=== PATIENT | female | born 1980 ===

== ENCOUNTER 2017-09-23 05:48 | Inpatient (IN) | payer OTHER ==
[2017-09-23] VITALS (10 sets, daily range): BP systolic 90–115; BP diastolic 47–76
[~2017-09-23] VITALS: Ht 157.5 cm; Wt 68.0 kg
[~2017-09-23 05:48] MED LIST: NKM
[2017-09-23] MEDS ORDERED: Zemuron 50mg/5ml Inj IV ONE (06:14)
[2017-09-23] MEDS ORDERED: Lidocaine 1% Plain 30 ml INJ ONE ×2 (06:19→09:43)
[2017-09-23] MEDS ORDERED: LR 1000ml 1,000 ML IVLG SCH (06:29)
[2017-09-23] MEDS ORDERED: Atropine Inj 1mg/10ml Syr IV PRN (06:30)
[2017-09-23] MEDS ORDERED: LORazepam Inj 2mg/ml 1ml IV PRN (06:30)
[2017-09-23] MEDS ORDERED: oxyCODONE HCL/Acetaminophen 5/325mg ORAL PRN (06:30)
[2017-09-23] MEDS ORDERED: HYDROcodone/Acetamin 7.5/325 tab ORAL PRN (06:30)
[2017-09-23] MEDS ORDERED: Ketorolac 30mg Inj IV PRN ×2 (06:30)
[2017-09-23] MEDS ORDERED: Metoclopramide 10mg/2ml Inj IVP PRN (06:30)
[2017-09-23] MEDS ORDERED: Hydromorphone 0.5mg/0.5ml inj IVP PRN (06:30)
[2017-09-23] MEDS ORDERED: DiphenhydrAMINE 50mg/ml Inj IVP PRN (06:30)
[2017-09-23] MEDS ORDERED: Norco 5mg/325mg tab ORAL PRN ×2 (06:30→07:30)
[2017-09-23] MEDS ORDERED: Labetalol 5mg/ml 20ml vial IV PRN (06:30)
[2017-09-23] MEDS ORDERED: Midazolam 2mg/2ml Inj IVP PRN (06:30)
[2017-09-23] MEDS ORDERED: fentaNYL 100 mcg/2 mL IV PRN (06:30)
[2017-09-23] MEDS ORDERED: Acetaminophen (Non formulary) 100 ML IV ONE (06:30)
--- NOTE | 2017-09-23 06:30 | Anethesia Preoperative Eval ---
Anesthesia Pre-op PMH/ROS General Date of Evaluation: Sep 23, 2017 Time of Evaluation: 07:16 Anesthesiologist: Francisca ASA Score: ASA 1 Mallampati Score Class I : Soft palate, uvula, fauces, pillars visible Class II: Soft palate, uvula, fauces visible Class III: Soft palate, base of uvula visible Class IV: Only hard plate visible Mallampati Classification: Class I Surgeon: Mimi Diagnosis: Back Pain Surgical Procedure: TLIF L4-5 Anesthesia History: none Family History: no anesthesia problems Allergies: Coded Allergies: No Known Allergies (Unverified , 09/20/17) Medications: see eMAR Past Medical History Neurologic/Psychiatric: Reports: depression/anxiety Hematology/Immune: Reports: anemia PSxH Narrative: Cholecystectomy, Appendectomy Anesthesia Pre-op Phys. Exam Physician Exam Vital Signs Date Time Temp Pulse Resp B/P (MAP) Pulse Ox O2 Delivery O2 Flow Rate FiO2 09/23/17 06:44 98.2 92 20 114/76 100 Room Air 98.2 Constitutional: NAD Neurologic: CN 2-12 intact Cardiovascular: RRR Respiratory: CTA Gastrointestinal: S/NT/ND Airway Exam Mallampati Score: Class I MO: full ROM: full Teeth: intact - Braces Anesthesia Pre-op A/P Risk Assessment & Plan Assessment: ASA 1 Plan: GA, BIS, GlideScope Status Change Before Surgery: No Pre-Antibiotics Dru Grams Ancef IV Given Within 1 Hr of Incision: Yes Time Given: 07:21 Greg Espinosa MD Sep 23, 2017 06:30
[2017-09-23] MEDS ORDERED: Sodium Chloride 10ml vial INJ ONE (06:45)
[2017-09-23] MEDS ORDERED: Lidocaine 1% MPF 10mg/ml 5ml ONE (06:45)
[2017-09-23] MEDS ORDERED: Dexamethasone 4mg/ml vial ONE (06:45)
[2017-09-23] MEDS ORDERED: fentaNYL 100 mcg/2 mL IV ONE ×2 (06:53→08:25)
[2017-09-23] MEDS ORDERED: NS Irrig 1000ml ONE (07:00)
[2017-09-23] MEDS ORDERED: Sterile Water Irrig 1000ml IRRIG ONE (07:00)
[2017-09-23] MEDS ORDERED: LR 1000ml ONE (07:00)
[2017-09-23] MEDS ORDERED: ceFAZolin sod 2 GM in D5W 110 ML IVPB ONE (07:00)
--- NOTE | 2017-09-23 07:19 | Pre-Procedure Note/Attestation ---
Pre-Procedure Note/Attestation Complete Prior to Procedure Procedure Narrative: transforaminal lumbar interbody fusion and decompression and instrumentation at L4-5 with bone marrow aspiration Indications for Procedure Pre-Operative Diagnosis: lumbar spondylosis and radiculopathy L4-5 Attestation I attest that I discussed the nature of the procedure; its benefits; risks and complications; and alternatives (and the risks and benefits of such alternatives ), prior to the procedure, with the patient (or the patient's legal resources representative). I attest that, if there was a reasonable possibility of needing a blood transfusion, the patient (or the patient's legal resources representative) was given the [place] Department [employer] standardized written summary, pursuant to the [place] Blood Safety Act ([place] Health and Safety Code # 1645, as amended). I attest that I re-evaluated the patient just prior to the surgery and that there has been no change in the patient's H&P, except as documented below: Lisandro Le MD Sep 23, 2017 07:19
[2017-09-23] MEDS ORDERED: Vancomycin 1gm inj IVPB ONE (07:23)
[2017-09-23] MEDS ORDERED: Thrombin 5000 units TOPIC ONE (07:23)
[2017-09-23] MEDS ORDERED: Heparin 5000 units/ml inj ONE (07:23)
[2017-09-23] MEDS ORDERED: EPINEPHrine 1mg/1ml Amp ONE (07:24)
[2017-09-23] MEDS ORDERED: Bacitracin 50000 Units Vial ONE (07:24)
[2017-09-23] MEDS ORDERED: Bupivacaine 0.5% Inj 30 ml vial INJ ONE (07:24)
[2017-09-23] MEDS ORDERED: Naloxone 0.4mg/ml Inj IVP PRN (07:30)
[2017-09-23] MEDS ORDERED: Morphine Sulfate 4mg/ml Inj SUBQ PRN (07:30)
[2017-09-23] MEDS ORDERED: Propofol 1,000mg/ 100ml btl IV ONE (07:30)
[2017-09-23] MEDS ORDERED: Labetalol 5mg/ml 20ml vial IV ONE (09:00)
--- NOTE | 2017-09-23 09:30 | Immediate Post-Op Evaluation ---
Immediate Post-Op Evalulation Immediate Post-Op Evalulation Procedure: TLIF L4-5 Date of Evaluation: Sep 23, 2017 Time of Evaluation: 11:37 IV Fluids: 1000 LR Blood Products: 0 Estimated Blood Loss: 100 Urinary Output: 100 Blood Pressure Systolic: 93 Blood Pressure Diastolic: 63 Pulse Rate: 91 Respiratory Rate: 16 O2 Sat by Pulse Oximetry: 98 Temperature (Fahrenheit): 99.8 Pain Score (1-10): 3 Nausea: No Vomiting: No Complications 0 Patient Status: awake, reacts, patent, extubated, none Hydration Status: adequate Dru Grams Ancef IV Given Within 1 Hr of Incision: Yes Time Given: 07:21 Greg Espinosa MD Sep 23, 2017 09:30
[2017-09-23] MEDS ORDERED: Neostigmine 1mg/ml 10ml Inj ONE (10:02)
[2017-09-23] MEDS ORDERED: Glycopyrrolate 0.2mg/ml 1ml Vial ONE (10:03)
--- NOTE | 2017-09-23 11:08 | Brief Operative Note ---
Immediate Post Operative Note Operative Note Pre-op Diagnosis: lumbar spondylosis and radiculopathy L4-5 Procedure: TLIF L4-5 WITH INSTRUMENTATION AND DECOMPRESSION AND IC BONE MARROW ASPIRATION Post-op Diagnosis: same as pre-op Findings: consistent w/pre-op dx studies Surgeon: LACI Packager: ALLYSON Anesthesiologist: SARAI Anesthesia: general Specimen: yes Complications: none Condition: stable Fluids: 1000CC CRYSTALLOID Estimated Blood Loss: volume - 100CC Drains: hemovac Implant(s) used?: Yes Lisandro Le MD Sep 23, 2017 11:08
[2017-09-23] MEDS: Morphine Sulfate 4mg/ml Inj SUBQ PRN ×2 (14:11→20:33)
[2017-09-23] MEDS: D5 1/2NS 1,000 ML IV SCH (14:14)
[2017-09-23] MEDS ORDERED: ceFAZolin sod 1 GM in D5W 55 ML IV SCH (16:00)
[2017-09-23] MEDS: ceFAZolin sod 1 GM in D5W 110 ML IV SCH (16:10)
--- NOTE | 2017-09-23 17:16 | Diagnostic Imaging Report ---
Indication: Back pain Comparison: None Findings: 3 intraoperative views of the lumbar spine were obtained. Imaging during lower lumbar fusion with posterior pedicle screws and fusion rods demonstrated on multiple views. IMPRESSION: intraoperative imaging
[2017-09-23] MEDS: Docusate 100mg cap ORAL SCH (17:37)
--- NOTE | 2017-09-23 22:32 | Operative Note - Dictated ---
DATE OF OPERATION: 09/23/2017 PREOPERATIVE DIAGNOSIS: L4-L5 disk protrusion with annular tear spondylosis and radiculopathy with concordant pain at L4-L5. POSTOPERATIVE DIAGNOSIS: L4-L5 disk protrusion with annular tear spondylosis and radiculopathy with concordant pain at L4-L5. PROCEDURE PERFORMED: 1. Posterolateral arthrodesis at L4-L5 2. Pedicle screw instrumentation at L4-L5. 3. Posterior interbody fusion at L4-L5 with PEEK interbody device. 4. Insertion of PEEK interbody device at L4-L5. 5. Bone marrow aspiration, left posterior iliac crest. 6. Placement of local autograft and allograft for fusion at L4-L5. 7. Intraoperative use of microscope. 8. Intraoperative use of fluoroscopy. SURGEON: Lisandro Le M.D. PLANNING ASSOCIATE: Pepe Anderson M.D. ANESTHESIA: General endotracheal anesthesia. ANESTHESIOLOGIST: Greg Espinosa M.D. INTRAOPERATIVE FINDINGS: Spondylosis, disk height collapse, stenosis, disk protrusion at L4-L5. EBL: 100 mL. FLUIDS: 1000 mL crystalloid. INDICATION: The patient has failed nonoperative treatment and recommendations for above treatment was made. Risks, alternatives, and benefits were discussed with the patient at length. Risks include, but are not limited to, anesthesia complications including , medical complications including liver, kidney, and cardiopulmonary deficits, bleeding infection, neurovascular injury, pars fracture, instability, need for future surgery, pseudarthrosis, hardware complications as well as other complications. The patient understood and wished to proceed. Written and verbal consent was given. DESCRIPTION OF OPERATION: The patient was brought into the operating room, supine on a stretcher. Appropriate IV lines were placed by the anesthesiologist. A 2 g of Ancef was administered. A surgical time-out was called. Surgical site and procedure was reviewed. Anesthesia was induced and the patient was successfully intubated. Sequential compression devices were placed onto the bilateral lower extremities. A Dial was placed under sterile conditions. The patient was turned prone onto the Bucky frame table. All bony prominences were well padded including the abdomen. The patient was prepped and draped in the usual sterile fashion with alcohol, ChloraPrep, and Ioban draping. Me and my administrative library assistant were prepped and gowned as well. The intraoperatively sterilely draped microscope was brought into the field for microdissection of the neural elements. An incision was carried out over the midline over L4-L5. Subperiosteal dissection was done at L4-L5 including the transverse process and facet joint capsule at L3-L4 was well preserved. Now, attention was first diverted to the right side at L4-L5. With a high-speed drill, straight and curved curette, #2 through #5 Kerrison punches and inter lumbar laminotomy, medial facetectomy at L4-L5 was done. The ligamentum flavum was removed and a large was placed for protection of neural elements during the facetectomy portion of the procedure. At this point with a high-speed drill, the superior and inferior articular facets at L4-L5 on the right side was removed for the pedicle to pedicle decompression at L4-L5 on the right side. Now all the neural elements were carefully microdissected and medially retracted for the diskectomy portion. The floor of the canal was checked. There was disk protrusion at L4-L5 causing impingement of the neural elements and with a #11-blade a box incision was made into the posterior anulus and the radical diskectomy entailed with box curettes, pituitary rongeurs, as well as Gabe curette. The endplate cartilage was removed. The endplate bone was well preserved. Shaver instruments were used as well for the diskectomy. Once this was accomplished, a trial from the [employer] RTI system was used and trial 22 mm long, 8 mm in height, and 6 mm lordosis was found to be well fitting into the interbody space. The interspinous outgoing inspector was also used to help with placement of the trial and then the PEEK graft. Once this was done, PEEK interbody device measuring 22 mm long, 8 mm height, and 6 degrees lordosis was chosen. It was packed with bone morphogenic protein, local autograft as well as Geronimo putty, as well as bone morphogenic protein. In the anterior interbody space, bone morphogenic protein, Geronimo allograft, and local autograft was also placed. Before this was done, a bone marrow aspiration of the left posterior iliac crest was done and 30 mL of bone marrow aspirate was taken to the spun down and later to be implanted into the anterior interbody space. The bone marrow and aspirate which was spun down now soaked into the local autograft as well the local allograft and placed into the anterior interbody space at L4-L5 in conjunction with bone morphogenic protein, allograft and autograft. Once this was completed, PEEK interbody device was placed into the L4-L5 interbody space with excellent apposition against the endplates and good recreation of disk height and it fit well into the anterior interbody space. This was confirmed with biplanar fluoroscopy. Once this was accomplished, attention was diverted to placement of the pedicle screws. A high-speed drill was used to the level of the mamillary processes and the center of the pedicles were found with pedicle probes and a ball-tip probe was used and there was no cortical breaches. Appropriately-sized taps was used and the following pedicle screws were successfully placed from the [employer] System. At L4 bilaterally 5.5 x 45 mm screws were placed at L5 bilaterally 6.5 x 25 mm was placed on and at this point each screw had excellent purchase. Stimulus evoked EMG was done for each pedicle screw and the screws were deemed to be stage. Decortication of the transverse process and the pars was done and attention now was diverted to placement of the rods 40 mm and 45 mm michelle was placed, setscrews were placed. Bone graft now was placed in the posterior lateral recess for posterolateral arthrodesis. Geronimo allograft as well as local autograft with bone marrow aspirate which was spun down was placed into the posterolateral recess. Once this was accomplished, the bone graft was protected. The wound was copiously irrigated with triple antibiotic solution. Hemostasis was achieved and final fluoroscopy AP and lateral was done revealed all instrumentation to be in excellent position. Now, attention was diverted to closure. A medium-sized Hemovac drain was placed subfascially. Dorsal lumbar fascia was closed with #1 Vicryl sutures in a watertight interrupted fashion. The subdermal and subcuticular layers were closed with 2-0 Vicryl sutures. The skin was closed with Dermabond. Sterile dressing and tape was placed. All sponge, needle, instrument counts were correct. Sterile dressing and tape was placed. The patient was turned supine, was extubated in stable condition, and was found to be neurovascularly intact. She was admitted to the hospital for monitoring. Lisandro Le M.D. DR: Ayad JOB#: [id number] CC:
[2017-09-24] VITALS: BP 113/71
[2017-09-24] MEDS: ceFAZolin sod 1 GM in D5W 110 ML IV SCH ×2 (00:13→08:00)
[2017-09-24] MEDS: D5 1/2NS 1,000 ML IV SCH ×3 (00:14→20:46)
[2017-09-24] MEDS: HYDROcodone/Acetamin 7.5/325 tab ORAL PRN ×2 (00:20→13:16)
[2017-09-24 04:00] VITALS: BP 103/61
[2017-09-24] MEDS: Morphine Sulfate 4mg/ml Inj SUBQ PRN ×3 (07:23→20:03)
[2017-09-24 08:00] VITALS: BP 116/78
[2017-09-24] MEDS: Docusate 100mg cap ORAL SCH ×2 (08:07→17:50)
[2017-09-24 08:16] LABS: HEMATOCRIT 24.8 % (37.0-47.0); HEMOGLOBIN 7.9 G/DL (12.0-16.0); MEAN CORPUSCULAR VOLUME 73 FL (80-99); PLATELET COUNT 355 K/UL (150-450); RED BLOOD COUNT 3.38 M/UL (4.20-5.40); RED CELL DISTRIBUTION WIDTH 14.2 % (11.6-14.8); WHITE BLOOD COUNT 14.6 K/UL (4.8-10.8)
--- NOTE | 2017-09-24 11:04 | 48 Hour Post Anesthesia Eval ---
Post Anesthesia Evaluation Procedure: TLIF L4-5 Date of Evaluation: Sep 24, 2017 Time of Evaluation: 08:00 Blood Pressure Systolic: 116 0: 78 Pulse Rate: 93 Respiratory Rate: 16 Temperature (Fahrenheit): 97.6 O2 Sat by Pulse Oximetry: 99 Airway: patent Nausea: No Vomiting: No Pain Intensity: 0 Hydration Status: adequate Mental Status/LOC: patient returned to baseline Post-Anesthesia Complications: none Follow-up care needed: N/A Amy Pritchett M.D. Sep 24, 2017 11:04
--- NOTE | 2017-09-24 11:12 | History and Physical ---
History of Present Illness General Date patient seen: Sep 24, 2017 Present Illness HPI 37 year old female with hx of depression, anemia presented with lumbar spondylosis and radiculopathy L4-5 and underwent TLIF L4-5 yesterday. Allergies: Coded Allergies: No Known Allergies (Unverified , 09/20/17) Medication History Scheduled No Known Medications* (NKM - No Known Medications*), 0 ., (Reported) Patient History Healthcare decision maker LAURA LYNN-SON Resuscitation status Full Code Advanced Directive on File Yes Review of Systems All Other Systems: negative except mentioned in HPI Physical Exam General Appearance: WD/WN, no apparent distress Lines, tubes and drains: peripheral HEENT: normocephalic, atraumatic Neck: non-tender, normal alignment Respiratory/Chest: chest wall non-tender, lungs clear Breasts: no masses Cardiovascular/Chest: normal peripheral pulses Abdomen: normal bowel sounds, non tender Genitourinary/Rectal: normal genital exam, normal rectal exam Extremities: normal range of motion, non-tender Skin Exam: normal pigmentation Last 24 Hour Vital Signs Date Time Temp Pulse Resp B/P (MAP) Pulse Ox O2 Delivery O2 Flow Rate FiO2 09/24/17 11:04 207.7 93 16 99 09/24/17 08:00 97.6 93 16 116/78 99 97.6 09/24/17 04:00 97.7 86 18 103/61 96 Nasal Cannula 3.0 97.7 09/24/17 00:00 97.5 94 18 113/71 95 Nasal Cannula 3.0 97.5 09/23/17 20:00 97.9 98 18 115/71 97 Nasal Cannula 3.0 97.9 09/23/17 12:59 98.3 73 19 110/60 100 Nasal Cannula 2.0 98.3 09/23/17 12:45 99.0 09/23/17 12:30 99.0 84 19 107/58 100 Nasal Cannula 2.0 99.0 09/23/17 12:24 37.2 09/23/17 12:24 37.2 09/23/17 12:15 83 18 105/55 100 Nasal Cannula 2.0 09/23/17 12:00 82 17 102/47 100 Nasal Cannula 2.0 09/23/17 11:59 99.8 09/23/17 11:54 99.8 09/23/17 11:52 99.8 09/23/17 11:46 84 18 90/52 100 Simple Mask 6.0 09/23/17 11:36 82 17 101/59 100 Simple Mask 6.0 09/23/17 11:31 99.8 100 16 92/51 98 Simple Mask 6.0 99.8 09/23/17 11:26 99.8 100 16 98/63 98 Simple Mask 6.0 99.8 09/23/17 11:26 211.6 91 16 98 Intake and Output 09/23/17 09/24/17 19:00 07:00 Intake Total 1970 ml 1160 ml Output Total 200 ml 1790 ml Balance 1770 ml -630 ml Intake Oral 560 ml IV Total 1410 ml 1160 ml Output Urine Total 100 ml 1600 ml Drainage Total 190 ml Estimated Blood Loss 100 ml Laboratory Tests Test 09/24/17 07:00 White Blood Count 14.6 K/UL (4.8-10.8) H Red Blood Count 3.38 M/UL (4.20-5.40) L Hemoglobin 7.9 G/DL (12.0-16.0) L Hematocrit 24.8 % (37.0-47.0) L Mean Corpuscular Volume 73 FL (80-99) L Mean Corpuscular Hemoglobin 23.4 PG (27.0-31.0) L Mean Corpuscular Hemoglobin Concent 31.9 G/DL (32.0-36.0) L Red Cell Distribution Width 14.2 % (11.6-14.8) Platelet Count 355 K/UL (150-450) Mean Platelet Volume 6.4 FL (6.5-10.1) L Neutrophils (%) (Auto) % (45.0-75.0) Lymphocytes (%) (Auto) % (20.0-45.0) Monocytes (%) (Auto) % (1.0-10.0) Eosinophils (%) (Auto) % (0.0-3.0) Basophils (%) (Auto) % (0.0-2.0) Differential Total Cells Counted 100 Neutrophils % (Manual) 77 % (45-75) H Lymphocytes % (Manual) 13 % (20-45) L Monocytes % (Manual) 10 % (1-10) Eosinophils % (Manual) 0 % (0-3) Basophils % (Manual) 0 % (0-2) Band Neutrophils 0 % (0-8) Platelet Estimate Adequate Platelet Morphology Normal Hypochromasia 1+ Anisocytosis 1+ Microcytosis 1+ Height (Feet): 5 Height (Inches): 2.00 Weight (Pounds): 150 Medications Current Medications Medications (Trade) Dose Ordered Sig/Camryn Route PRN Reason Start Time Stop Time Status Last Admin Dose Admin Acetaminophen/ Hydrocodone Bitart (Shelby 5/325) 1 tab Q3H PRN ORAL pain score 1-3 09/23/17 07:30 09/30/17 07:29 Acetaminophen/ Hydrocodone Bitart (Shelby 7.5/325) 1 tab Q3H PRN ORAL pain score 4-6 09/23/17 07:30 09/30/17 07:29 09/24/17 00:20 Acetaminophen/ Hydrocodone Bitart (Shelby 7.5/325) 2 tab Q3H PRN ORAL pain scale 7-10 09/23/17 07:30 09/30/17 07:29 Al Hydroxide/Mg Hydroxide (Mylanta) 15 ml Q1H PRN ORAL gi upset 09/23/17 06:30 Dextrose/Sodium Chloride 1,000 ml @ 100 mls/hr Q10H IV 09/23/17 14:00 10/23/17 13:59 09/24/17 10:11 Docusate Sodium (Colace) 100 mg TWICE A DAY ORAL 09/23/17 18:00 10/23/17 17:59 09/24/17 08:07 Morphine Sulfate (Morphine Sulfate) 4 mg Q3H PRN SUBQ Severe Pain (Pain Scale 7-10) 09/23/17 07:30 09/30/17 07:29 09/24/17 07:23 Morphine Sulfate (Morphine Sulfate) 4 mg Q4H PRN SUBQ Moderate Pain (Pain Scale 4-6) 09/23/17 07:30 09/30/17 07:29 Naloxone HCl (Narcan) 0.1 mg PRN PRN IVP RR<12/min, pt unarousable 09/23/17 07:30 10/23/17 07:29 Ondansetron HCl (Zofran) 4 mg Q6H PRN IVP Nausea & Vomiting 09/23/17 20:45 10/23/17 20:44 6/2/18 07:22 Assessment/Plan Problem List: (1) Lumbar radiculopathy ICD Codes: M54.16 - Radiculopathy, lumbar region SNOMED: 778997121 (2) Depression ICD Codes: F32.9 - Major depressive disorder, single episode, unspecified SNOMED: 71519117 (3) Severe anemia ICD Codes: D64.9 - Anemia, unspecified SNOMED: 680689803 Assessment/Plan post op care symptomatic treatment anemia w/u dvt prophylaxis pain management. Moris Mccarthy MD Sep 24, 2017 11:12
[2017-09-24 12:00] VITALS: BP 110/75
[2017-09-24 15:21] LABS: BASOPHILS % (AUTO) 0.6 % (0.0-2.0); EOSINOPHILS % (AUTO) 0.1 % (0.0-3.0); HEMATOCRIT 25.5 % (37.0-47.0); HEMOGLOBIN 8.4 G/DL (12.0-16.0); LYMPHOCYTES % (AUTO) 14.3 % (20.0-45.0); MEAN CORPUSCULAR VOLUME 73 FL (80-99); MONOCYTES % (AUTO) 6.2 % (1.0-10.0); NEUTROPHILS % (AUTO) 78.9 % (45.0-75.0); PLATELET COUNT 342 K/UL (150-450); RED CELL DISTRIBUTION WIDTH 14.4 % (11.6-14.8)
[2017-09-24 16:00] VITALS: BP 115/74
--- NOTE | 2017-09-24 17:26 | General Progress Note ---
Progress Note Progress Note NO PAIN WITH AMBULATION NO LEG PAIN TYPE OF LB PAIN DIFFERENT PREOP PAIN CHARACTER NO LONGER AVSS A AND O TIMES 3 DRESSING CDI HV 50 SHIFT 5/5 MOTOR IN THE LE CALVES SOFT ADN NT HG UP TO 8.4 A: STABLE P: HD STABLE OOB AND PT LABS TOMORROW NO BLOOD TX NEED AT THIS POINT WILL CONTINUE TO MONITOR Lisandro Patel MD Sep 24, 2017 17:26
[2017-09-24 20:00] VITALS: BP 105/70
[2017-09-25] VITALS: BP 121/81
[2017-09-25] MEDS: Morphine Sulfate 4mg/ml Inj SUBQ PRN ×3 (00:40→14:32)
[2017-09-25 04:00] VITALS: BP 119/79
[2017-09-25] MEDS: D5 1/2NS 1,000 ML IV SCH ×3 (06:06→22:28)
[2017-09-25 08:00] VITALS: BP 105/74
[2017-09-25] MEDS: Docusate 100mg cap ORAL SCH ×2 (08:18→17:51)
[2017-09-25 08:30] LABS: BASOPHILS % (AUTO) 0.9 % (0.0-2.0); EOSINOPHILS % (AUTO) 0.2 % (0.0-3.0); HEMATOCRIT 24.8 % (37.0-47.0); HEMOGLOBIN 8.1 G/DL (12.0-16.0); LYMPHOCYTES % (AUTO) 16.8 % (20.0-45.0); MEAN CORPUSCULAR VOLUME 73 FL (80-99); MONOCYTES % (AUTO) 8.4 % (1.0-10.0); NEUTROPHILS % (AUTO) 73.7 % (45.0-75.0); PLATELET COUNT 326 K/UL (150-450); RED CELL DISTRIBUTION WIDTH 14.1 % (11.6-14.8); WHITE BLOOD COUNT 8.5 K/UL (4.8-10.8)
[2017-09-25 08:56] LABS: ALANINE AMINOTRANSFERASE 477 U/L (12-78); ALBUMIN/GLOBULIN RATIO 0.8 (1.0-2.7); ALKALINE PHOSPHATASE 140 U/L (46-116); ANION GAP 7 mmol/L (5-15); ASPARTATE AMINO TRANSFERASE 500 U/L (15-37); BILIRUBIN,TOTAL 0.6 MG/DL (0.2-1.0); BLOOD UREA NITROGEN 4 mg/dL (7-18); CARBON DIOXIDE 28 MMOL/L (21-32); CHLORIDE 101 MMOL/L (98-107); CREATININE 0.6 MG/DL (0.55-1.30); LACTATE DEHYDROGENASE 446 U/L (81-234); PHOSPHORUS 2.2 MG/DL (2.5-4.9); POTASSIUM 3.6 MMOL/L (3.5-5.1); SODIUM 135 MMOL/L (136-145)
[2017-09-25 10:32] LABS: % IRON SATURATION 7 % (15-50); IRON 23 ug/dL (50-175); TOTAL IRON BINDING CAPACITY 345 ug/dL (250-450)
--- NOTE | 2017-09-25 10:41 | Pulmonology Progress Note ---
Assessment/Plan Problems: (1) Lumbar radiculopathy (2) Depression (3) Severe anemia (4) Hypophosphatemia Assessment/Plan IV venofer NeuroPhos iv symptomatic treatment Subjective ROS Limited/Unobtainable: No Allergies: Coded Allergies: No Known Allergies (Unverified , 09/20/17) Objective Last 24 Hour Vital Signs Date Time Temp Pulse Resp B/P (MAP) Pulse Ox O2 Delivery O2 Flow Rate FiO2 09/25/17 08:00 100.1 109 20 105/74 96 Room Air 100.1 09/25/17 04:00 99.8 105 17 119/79 97 Room Air 99.8 09/25/17 00:00 99.0 106 20 121/81 95 Room Air 99.0 09/24/17 20:00 98.0 108 19 105/70 97 Room Air 98.0 09/24/17 16:00 97.6 99 17 115/74 98 97.6 09/24/17 12:00 97.4 93 17 110/75 96 97.4 09/24/17 11:04 207.7 93 16 99 Intake and Output 09/24/17 09/25/17 19:00 07:00 Intake Total 1810 ml 1200 ml Output Total 1200 ml 690 ml Balance 610 ml 510 ml Intake Oral 600 ml 100 ml IV Total 1210 ml 1100 ml Output Urine Total 1200 ml 650 ml Drainage Total 40 ml Objective HEENT: normocephalic, atraumatic Respiratory/Chest: chest wall non-tender, lungs clear Breasts: no masses Cardiovascular: normal peripheral pulses, regular rhythm Abdomen: soft, non tender, no organomegaly Genitourinary: normal external genitalia Extremities: no cyanosis Skin: no rash General Appearance: WD/WN Microbiology Date/Time Source Procedure Growth Status 09/23/17 07:00 Nasal Nares MRSA Culture - Final NO METHICILLIN RESISTANT STAPH AUREUS... Complete Laboratory Tests 09/24/17 15:00: White Blood Count 12.0H, Red Blood Count 3.50L, Hemoglobin 8.4L, Hematocrit 25.5L, Mean Corpuscular Volume 73L, Mean Corpuscular Hemoglobin 24.1L, Mean Corpuscular Hemoglobin Concent 33.1, Red Cell Distribution Width 14.4, Platelet Count 342, Mean Platelet Volume 6.3L, Neutrophils (%) (Auto) 78.9H, Lymphocytes (%) (Auto) 14.3L, Monocytes (%) (Auto) 6.2, Eosinophils (%) (Auto) 0.1, Basophils (%) (Auto) 0.6 09/25/17 07:44: White Blood Count 8.5, Red Blood Count 3.40L, Hemoglobin 8.1L, Hematocrit 24.8L , Mean Corpuscular Volume 73L, Mean Corpuscular Hemoglobin 23.9L, Mean Corpuscular Hemoglobin Concent 32.8, Red Cell Distribution Width 14.1, Platelet Count 326, Mean Platelet Volume 6.4L, Neutrophils (%) (Auto) 73.7, Lymphocytes ( %) (Auto) 16.8L, Monocytes (%) (Auto) 8.4, Eosinophils (%) (Auto) 0.2, Basophils (%) (Auto) 0.9, Differential Total Cells Counted 100, Neutrophils % ( Manual) 73, Lymphocytes % (Manual) 18L, Monocytes % (Manual) 9, Eosinophils % ( Manual) 0, Basophils % (Manual) 0, Band Neutrophils 0, Platelet Estimate Adequate, Platelet Morphology Normal, Hypochromasia 1+, Anisocytosis 1+, Microcytosis 1+, Erythrocyte Sedimentation Rate 54H, Reticulocyte Count [Pending ], Prothrombin Time 10.3, Prothromb Time International Ratio 1.0, Activated Partial Thromboplast Time 25, Sodium Level 135L, Potassium Level 3.6, Chloride Level 101, Carbon Dioxide Level 28, Anion Gap 7, Blood Urea Nitrogen 4L, Creatinine 0.6, Estimat Glomerular Filtration Rate > 60, Glucose Level 118H, Calcium Level 8.0L, Phosphorus Level 2.2L, Magnesium Level 1.8, Iron Level 23L, Total Iron Binding Capacity 345, Percent Iron Saturation 7L, Unsaturated Iron Binding 322, Total Bilirubin 0.6, Aspartate Amino Transf (AST/SGOT) 500H, Alanine Aminotransferase (ALT/SGPT) 477H, Alkaline Phosphatase 140H, Lactate Dehydrogenase 446H, Total Protein 6.8, Albumin 3.0L, Globulin 3.8, Albumin/ Globulin Ratio 0.8L, Carcinoembryonic Antigen [Pending], Vitamin B12 Level 976, Folate 15.8 Current Medications Medications (Trade) Dose Ordered Sig/Camryn Route PRN Reason Start Time Stop Time Status Last Admin Dose Admin Acetaminophen/ Hydrocodone Bitart (Moody 5/325) 1 tab Q3H PRN ORAL pain score 1-3 09/23/17 07:30 09/30/17 07:29 Acetaminophen/ Hydrocodone Bitart (Moody 7.5/325) 1 tab Q3H PRN ORAL pain score 4-6 09/23/17 07:30 09/30/17 07:29 09/24/17 13:16 Acetaminophen/ Hydrocodone Bitart (Moody 7.5/325) 2 tab Q3H PRN ORAL pain scale 7-10 09/23/17 07:30 09/30/17 07:29 Al Hydroxide/Mg Hydroxide (Mylanta) 15 ml Q1H PRN ORAL gi upset 09/23/17 06:30 Dextrose/Sodium Chloride 1,000 ml @ 100 mls/hr Q10H IV 09/23/17 14:00 10/23/17 13:59 09/25/17 06:06 Docusate Sodium (Colace) 100 mg TWICE A DAY ORAL 09/23/17 18:00 10/23/17 17:59 09/25/17 08:18 Morphine Sulfate (Morphine Sulfate) 4 mg Q3H PRN SUBQ Severe Pain (Pain Scale 7-10) 09/23/17 07:30 09/30/17 07:29 09/25/17 07:40 Morphine Sulfate (Morphine Sulfate) 4 mg Q4H PRN SUBQ Moderate Pain (Pain Scale 4-6) 09/23/17 07:30 09/30/17 07:29 Naloxone HCl (Narcan) 0.1 mg PRN PRN IVP RR<12/min, pt unarousable 09/23/17 07:30 10/23/17 07:29 Ondansetron HCl (Zofran) 4 mg Q6H PRN IVP Nausea & Vomiting 09/23/17 20:45 10/23/17 20:44 09/25/17 08:18 Moris Mccarthy MD Sep 25, 2017 10:41
[2017-09-25] MEDS ORDERED: D5 1/2NS 1000ml IV ONE (11:13)
[2017-09-25 11:30] LABS: APPEARANCE,URINE CLEAR; BILIRUBIN, URINE NEGATIVE (NEGATIVE); COLOR,URINE PALE YELLOW; GLUCOSE, URINE (UA) NEGATIVE (NEGATIVE); KETONES,URINE NEGATIVE (NEGATIVE); LEUKOCYTE ESTERASE ,URINE 1+ (NEGATIVE); NITRITE,URINE NEGATIVE (NEGATIVE); PH,URINE 8 (4.5-8.0); PROTEIN,URINE NEGATIVE (NEGATIVE); UROBILINOGEN,URINE NORMAL MG/DL (0.0-1.0)
[2017-09-25 12:00] VITALS: BP 105/61
[2017-09-25] MEDS ORDERED: Iron Sucrose 100 MG in NS 110 ML IV ONE (12:00)
[2017-09-25] MEDS ORDERED: Sodium Phosphate 10 MM in NS 275 ML IVPB ONE (13:00)
[2017-09-25 16:00] VITALS: BP 124/81
[2017-09-25] MEDS: HYDROcodone/Acetamin 7.5/325 tab ORAL PRN (18:22)
[2017-09-25 20:00] VITALS: BP 107/72
[2017-09-26] VITALS: BP 123/83
[2017-09-26] MEDS: Morphine Sulfate 4mg/ml Inj SUBQ PRN ×3 (02:27→21:41)
[2017-09-26 04:00] VITALS: BP 109/4
[2017-09-26 08:00] VITALS: BP 101/66
[2017-09-26] MEDS: Docusate 100mg cap ORAL SCH ×2 (08:43→18:09)
[2017-09-26] MEDS: HYDROcodone/Acetamin 7.5/325 tab ORAL PRN ×2 (08:44→19:59)
[2017-09-26] MEDS: D5 1/2NS 1,000 ML IV SCH ×2 (10:32→21:43)
[2017-09-26 12:00] VITALS: BP 92/57
--- NOTE | 2017-09-26 13:25 | Pulmonology Progress Note ---
Assessment/Plan Problems: (1) Lumbar radiculopathy (2) Depression (3) Severe anemia (4) Hypophosphatemia Assessment/Plan symptomatic treatment IV venofer NeuroPhos iv pain management check cbc and phos Subjective ROS Limited/Unobtainable: No Constitutional: Reports: no symptoms HEENT: Repors: no symptoms Respiratory: Reports: no symptoms Allergies: Coded Allergies: No Known Allergies (Unverified , 09/20/17) Objective Last 24 Hour Vital Signs Date Time Temp Pulse Resp B/P (MAP) Pulse Ox O2 Delivery O2 Flow Rate FiO2 09/26/17 12:00 98.2 91 20 92/57 97 Room Air 98.2 09/26/17 08:00 100.0 97 19 101/66 97 Room Air 100.0 09/26/17 04:00 98.0 100 18 109/4 99 Room Air 98.0 09/26/17 00:00 98.5 92 18 123/83 99 Room Air 98.5 09/25/17 20:00 98.2 97 19 107/72 95 Room Air 98.2 09/25/17 16:00 99.8 104 20 124/81 96 99.8 Intake and Output 09/25/17 09/26/17 19:00 07:00 Intake Total 1015 ml 800 ml Output Total 10 ml 505 ml Balance 1005 ml 295 ml Intake Oral 100 ml IV Total 915 ml 800 ml Output Urine Total 500 ml Drainage Total 10 ml 5 ml # Voids 1 Objective HEENT: normocephalic, atraumatic Respiratory/Chest: chest wall non-tender, lungs clear Breasts: no masses Cardiovascular: normal peripheral pulses, regular rhythm Abdomen: soft, non tender, no organomegaly Genitourinary: normal external genitalia Extremities: no cyanosis Skin: no rash Microbiology Date/Time Source Procedure Growth Status 09/25/17 08:10 Urine,Clean Catch Urine Culture - Preliminary NO GROWTH Resulted Current Medications Medications (Trade) Dose Ordered Sig/[place] Route PRN Reason Start Time Stop Time Status Last Admin Dose Admin Acetaminophen/ Hydrocodone Bitart ([place] 5/325) 1 tab Q3H PRN ORAL pain score 1-3 09/23/17 07:30 09/30/17 07:29 Acetaminophen/ Hydrocodone Bitart ([place] 7.5/325) 1 tab Q3H PRN ORAL pain score 4-6 09/23/17 07:30 09/30/17 07:29 09/26/17 08:44 Acetaminophen/ Hydrocodone Bitart ([place] 7.5/325) 2 tab Q3H PRN ORAL pain scale 7-10 09/23/17 07:30 09/30/17 07:29 Al Hydroxide/Mg Hydroxide (Mylanta) 15 ml Q1H PRN ORAL gi upset 09/23/17 06:30 Dextrose/Sodium Chloride 1,000 ml @ 100 mls/hr Q10H IV 09/23/17 14:00 10/23/17 13:59 09/26/17 10:32 Docusate Sodium (Colace) 100 mg TWICE A DAY ORAL 09/23/17 18:00 10/23/17 17:59 09/26/17 08:43 Morphine Sulfate (Morphine Sulfate) 4 mg Q3H PRN SUBQ Severe Pain (Pain Scale 7-10) 09/23/17 07:30 09/30/17 07:29 09/26/17 02:27 Morphine Sulfate (Morphine Sulfate) 4 mg Q4H PRN SUBQ Moderate Pain (Pain Scale 4-6) 09/23/17 07:30 09/30/17 07:29 Naloxone HCl (Narcan) 0.1 mg PRN PRN IVP RR<12/min, pt unarousable 09/23/17 07:30 10/23/17 07:29 Ondansetron HCl (Zofran) 4 mg Q6H PRN IVP Nausea & Vomiting 09/23/17 20:45 10/23/17 20:44 09/26/17 12:55 Moris Mccarthy MD Sep 26, 2017 13:25
[2017-09-26] MEDS ORDERED: D5 1/2NS 1000ml IV ONE (17:13)
[2017-09-26 20:00] VITALS: BP 121/82
[2017-09-27 00:27] VITALS: BP 119/77
[2017-09-27] MEDS: Morphine Sulfate 4mg/ml Inj SUBQ PRN (05:42)
[2017-09-27] MEDS: D5 1/2NS 1,000 ML IV SCH (05:42)
[2017-09-27 08:00] VITALS: BP 110/68
[2017-09-27] MEDS: Docusate 100mg cap ORAL SCH ×2 (09:06→17:43)
[2017-09-27] MEDS: HYDROcodone/Acetamin 7.5/325 tab ORAL PRN (09:56)
[2017-09-27 12:00] VITALS: BP 93/56
--- NOTE | 2017-09-27 14:20 | Pulmonology Progress Note ---
Assessment/Plan Problems: (1) Lumbar radiculopathy (2) Depression (3) Severe anemia (4) Hypophosphatemia Assessment/Plan symptomatic treatment s/p IV venofer NeuroPhos iv pain management dc planning Subjective ROS Limited/Unobtainable: No Constitutional: Reports: no symptoms HEENT: Repors: no symptoms Respiratory: Reports: no symptoms Allergies: Coded Allergies: No Known Allergies (Unverified , 09/20/17) Objective Last 24 Hour Vital Signs Date Time Temp Pulse Resp B/P (MAP) Pulse Ox O2 Delivery O2 Flow Rate FiO2 09/27/17 12:00 98.2 84 17 93/56 94 Room Air 98.2 09/27/17 08:00 99.1 90 17 110/68 96 Room Air 99.1 09/27/17 00:27 98.1 101 20 119/77 96 98.1 09/26/17 21:46 98.2 98.2 09/26/17 20:00 101.2 106 20 121/82 96 101.2 Intake and Output 09/26/17 09/27/17 19:00 07:00 Intake Total 1200 ml 2110 ml Output Total 8 ml Balance 1200 ml 2102 ml Intake Oral 360 ml IV Total 1200 ml 1200 ml Other 550 ml Drainage Total 8 ml # Voids 7 Objective HEENT: normocephalic, atraumatic Respiratory/Chest: chest wall non-tender, lungs clear Breasts: no masses Cardiovascular: normal peripheral pulses, regular rhythm Abdomen: soft, non tender, no organomegaly Genitourinary: normal external genitalia Extremities: no cyanosis Skin: no rash Microbiology Date/Time Source Procedure Growth Status 09/25/17 11:10 Blood Blood Culture - Preliminary NO GROWTH AFTER 24 HOURS Resulted 09/25/17 11:00 Blood Blood Culture - Preliminary NO GROWTH AFTER 24 HOURS Resulted 09/25/17 08:10 Urine,Clean Catch Urine Culture - Preliminary NO GROWTH AFTER 24 HOURS Resulted Current Medications Medications (Trade) Dose Ordered Sig/[place] Route PRN Reason Start Time Stop Time Status Last Admin Dose Admin Acetaminophen/ Hydrocodone Bitart ([place] 5/325) 1 tab Q3H PRN ORAL pain score 1-3 09/23/17 07:30 09/30/17 07:29 Acetaminophen/ Hydrocodone Bitart ([place] 7.5/325) 1 tab Q3H PRN ORAL pain score 4-6 09/23/17 07:30 09/30/17 07:29 09/26/17 08:44 Acetaminophen/ Hydrocodone Bitart ([place] 7.5/325) 2 tab Q3H PRN ORAL pain scale 7-10 09/23/17 07:30 09/30/17 07:29 09/27/17 09:56 Al Hydroxide/Mg Hydroxide (Mylanta) 15 ml Q1H PRN ORAL gi upset 09/23/17 06:30 Docusate Sodium (Colace) 100 mg TWICE A DAY ORAL 09/23/17 18:00 10/23/17 17:59 09/27/17 09:06 Morphine Sulfate (Morphine Sulfate) 4 mg Q3H PRN SUBQ Severe Pain (Pain Scale 7-10) 09/23/17 07:30 09/30/17 07:29 09/27/17 05:42 Morphine Sulfate (Morphine Sulfate) 4 mg Q4H PRN SUBQ Moderate Pain (Pain Scale 4-6) 09/23/17 07:30 09/30/17 07:29 Naloxone HCl (Narcan) 0.1 mg PRN PRN IVP RR<12/min, pt unarousable 09/23/17 07:30 10/23/17 07:29 Ondansetron HCl (Zofran) 4 mg Q6H PRN IVP Nausea & Vomiting 09/23/17 20:45 10/23/17 20:44 09/27/17 00:33 Moris Mccarthy MD Sep 27, 2017 14:20
[2017-09-27 16:00] VITALS: BP 105/66
--- NOTE | 2017-09-28 13:18 | Discharge Summary ---
Discharge Summary Hospital Course Date of Admission Sep 23, 2017 at 05:48 Date of Discharge Sep 27, 2017 at 20:20 Admitting Diagnosis lumbar radiculopathy Reason for Hospitalization: elective surgery HPI India Gonzáles is a 37 year old female who was admitted on Sep 23, 2017 at 05:48 for Lumbar Radiculopathy Patient was admitted for elective surgery Consultations dr Mccarthy -IM Procedures s/p 09/23/[address] Le 1. Posterolateral arthrodesis at L4-L5 2. Pedicle screw instrumentation at L4-L5. 3. Posterior interbody fusion at L4-L5 with PEEK interbody device. 4. Insertion of PEEK interbody device at L4-L5. 5. Bone marrow aspiration, left posterior iliac crest. 6. Placement of local autograft and allograft for fusion at L4-L5. 7. Intraoperative use of microscope. 8. Intraoperative use of fluoroscopy. Hospital Course s/p surgery neurovascular intact pain management addressed, pain controlled\ dressing C/D/I initially with Hemovac, output closely monitored, discontinued later by surgeon fall precautions, ambulated with brace, with PT voided freely diet as tolerated, a/emetic prn, noted severe anemia, anemia workup with low iron and low ferritin, started on IV Venofer, HH closely monitored, no need for transfusion, goal to keep Hgb above 7 electrolytes were closely monitored, phosphorus was replaced by IV route patient stabilized: pain controlled, n/v intact, dressing C/D/I, ambulated, voided freely, tolerated diet Patient was stable for discharge home dc instructions provided outpatient fup with surgeon as advised Discharge Condition Upon Discharge: stable Discharge Disposition Patient was discharged to Home () Discharge Instructions Discharge Instructions Special Instructions I have been assigned to complete a D/C Summary on this account. I was not involved in the patient management Ashanti Abad NP Sep 28, 2017 13:18
== END 2017-09-27 20:20 | disposition home or self-care (01) | DRG 460 ==
LOC: SDSOVERFLO 05:48 → 3E 12:46
PROC: 0SG00AJ Fusion of Lumbar Vertebral Joint with Interbody Fusion Device, Posterior Approach, Anterior Column, Open Approach (ICD-10-PCS; principal; 2017-09-23 07:30)
PROC: 07DR3ZZ Extraction of Iliac Bone Marrow, Percutaneous Approach (ICD-10-PCS; principal; 2017-09-23 07:30)
PROC: 0ST20ZZ Resection of Lumbar Vertebral Disc, Open Approach (ICD-10-PCS; principal; 2017-09-23 07:30)
DX: M51.16 Intervertebral disc disorders with radiculopathy, lumbar region (principal); M47.9 Spondylosis, unspecified; M48.061 Spinal stenosis, lumbar region without neurogenic claudication; F32.9 Major depressive disorder, single episode, unspecified; D64.9 Anemia, unspecified; E83.39 Other disorders of phosphorus metabolism
CPT/HCPCS: 36415; 72020; 76001; 80053; 81001; 81025; 82378; 82607; 82728; 82746; 83540; 83550; 83615; 83735; 84100; 85007; 85025; 85044; 85060; 85610; 85651; 85730; 86850; 86900; 86901; 87040; 87081; 87086; 94003; 94150; J2405; J2710